=== PATIENT | female | born 1955 | race Caucasian/White ===

== ENCOUNTER 2017-02-05 10:40 | Day surgery (SDC) | payer BC ==
[2017-02-05] MEDS ORDERED: LIDOCAINE HCL 1% MPF SOL ONE ×2 (11:29→11:44)
[2017-02-05] MEDS ORDERED: PROPOFOL 500 MG/50 ML EMU IV ONE (11:44)
[2017-02-05] MEDS ORDERED: ONDANSETRON HCL 4 MG/2 ML SOL ONE (11:44)
[2017-02-05] MEDS ORDERED: MIDAZOLAM 2 MG/2 ML SOL ONE (11:44)
[2017-02-05] MEDS ORDERED: FENTANYL 100MCG/2ML SOL ONE (11:44)
[2017-02-05] MEDS: BUPIVACAINE HCL 0.5% MPF 10 ML SOL ONE ×2 (12:10→12:44)
[2017-02-05] MEDS ORDERED: CEFAZOLIN SODIUM 1 GM PDS ONE (12:13)
[2017-02-05 14:01] VITALS: BP 125/78; PULSE 78; RESP 20; TEMP 97; O2SAT 98
== END 2017-02-05 14:35 | disposition home or self-care (01) ==
LOC: SURG 10:40
PROVIDERS: ATTEND Podiatrist
DX: M20.42 Other hammer toe(s) (acquired), left foot (principal); M89.9 Disorder of bone, unspecified
CPT/HCPCS: 28285; J0690; J2001 ×2; J2250; J2405; J2704; J3010; L3260; A6402